=== PATIENT | male | born 1990 | race Caucasian/White ===

== ENCOUNTER 2021-05-29 22:17 | Emergency (ER) | payer MEDICARE, OTHER ==
[~2021-05-29] VITALS: Ht 170.2 cm; Wt 72.6 kg
[2021-05-29] MEDS ORDERED: CRUTCH1 EACH MISC (23:15)
== END 2021-05-29 23:34 | disposition home or self-care (01) ==
LOC: ED 22:17
DX: S93.401A Sprain of unspecified ligament of right ankle, initial encounter (principal); W22.8XXA Striking against or struck by other objects, initial encounter; F17.200 Nicotine dependence, unspecified, uncomplicated
CPT/HCPCS: 73610; 99283-25; A9270

== ENCOUNTER 2021-06-03 16:54 | Emergency (ER) | payer MEDICARE, OTHER ==
[~2021-06-03] VITALS: Ht 170.2 cm; Wt 72.6 kg
[~2021-06-03 16:54] MED LIST: CRUTCH1 EACH MISC
--- OUTSIDE RECORDS SUMMARY | 2021-06-03 17:02 | XMS ---
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 Alexa has no Care Guidelines for this patient. Ramy VISIT COUNT (12 MO.) 2 [facility] [place] [facility] TOTAL 2 NOTE: Visits indicate total known visits. ED/C VISIT TRACKING (12 MO.) 06/03/2021 16:54 [facility] [place] TYPE: Emergency COMPLAINT: - MEDICATION REFILL 05/29/2021 22:[address] [facility] [place] TYPE: Emergency COMPLAINT: - RT FOOT INJURY DIAGNOSES: - Striking against or struck by other objects, initial encounter - Sprain of unspecified ligament of right ankle, initial encounter - Nicotine dependence, unspecified, uncomplicated INPATIENT VISIT TRACKING (12 MO.) No inpatient visits to display in this time frame [email or web address]
== END 2021-06-03 19:25 | disposition home or self-care (01) ==
LOC: ED 16:54
DX: D70.4 Cyclic neutropenia (principal); Z20.822 Contact with and (suspected) exposure to COVID-19; F17.200 Nicotine dependence, unspecified, uncomplicated
CPT/HCPCS: 80053; 85007; 85025; 99283

== ENCOUNTER 2021-08-16 10:28 | Day surgery (SDC) | payer MEDICARE, OTHER ==
[~2021-08-16] VITALS: Ht 170.2 cm; Wt 71.1 kg
[~2021-08-16 10:28] MED LIST changes: +NEUPOGEN300 MCG/1 INJ; +ZYRTEC10 MG PO
--- NOTE | 2021-08-16 13:25 | NUR ---
08/16/21 1325 KrystalMaggi 1312 PT ARRIVED TO PACU ON 6L VIA OXYMASK WITH ORAL AIRWAY IN PLACE. VSS. PT NONAROUSABLE AND RN DOING JAW THRUST. 1314 PROGRESSIVE CARE NURSE AT BED AND DOING JAW THRUST WITH THIS RN.
--- NOTE | 2021-08-21 16:16 | PATH ---
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 Peripheral blood - Marked neutropenia. - Marked thrombocytopenia. B. Bone marrow aspirate, clot section and core biopsies: - Slightly hypocellular bone marrow for age with myeloid hypoplasia and erythroid hyperplasia. - Negative for increase in blasts. - Negative for definite morphologic features of myelodysplastic syndrome (MDS). - Negative for increase in plasma cells or infiltrative bone marrow processes. - Please see Diagnostic Comment. DIAGNOSTIC COMMENT: By morphology, the bone marrow is slightly hypocellular with erythroid precursors and myeloid hypoplasia noted. The megakaryocytes are slightly decreased in number. No definite dyshematopoiesis is identified, and no increase in blasts is present. Patient's history of Shwachman-Lady syndrome is noted. Overall changes are not diagnostic for MDS. Correlation with pending cytogenetic study and FISH panel for MDS will be helpful for further confirmation Results will be reported in an addendum. NA:caw:C2NR PERIPHERAL BLOOD: HEMOGRAM ([facility], 08/16/2021): WBC 1.7 K/uL, RBC 4.2 M/uL, HGB 13.9 g/dL, HCT 41.5%, MCV 98.8 fL, MCH 33.2 pg, MCHC 33.6 g/dL, RDW 15.3%, PLT 50 K/uL. Absolute neutrophils count 0.27 K/uL DIFFERENTIAL COUNT (manual): 16% neutrophils, 67% lymphocytes, 14% monocytes, 1% eosinophils and 2% bands. PATIENT NAME: CHRISTO METZGER PATHOLOGY DATE OF : 88 REPORT #: [id number] PHYSICIAN: JUSTEN PATHOLOGY PCP: NO PRIMARY CARE PHYSICIAN REPORT IS CONFIDENTIAL AND NOT TO BE RELEASED WITHOUT AUTHORIZATION [facility] [address] [place], [place] [address] Signed Review of peripheral and CBC data demonstrates that the RBCs are normal in number and are normocytic and normochromic with no anemia present. The WBCs are decreased in number with absolute neutropenia present. Rare neutrophils are encountered, showing unremarkable morphology. Relative lymphocytosis is present, and the lymphocytes show unremarkable morphology. The platelets are markedly decreased in number (50,000) with unremarkable morphology. BONE MARROW: BONE MARROW ASPIRATE SMEARS: The bone marrow aspirate smears are hypocellular with few bone marrow particles present. Scattered hematopoietic elements are seen, showing progressive ordinary maturation. No increase in blasts is identified. The myeloid precursors appear to be markedly decreased. Relative erythroid hyperplasia is present with progressive maturation and no dyshematopoiesis identified. Rare megakaryocytes are encountered. BONE MARROW DIFFERENTIAL: 1% blasts, 2% promyelocytes, 2.5% myelocytes, 14.5% segmented neutrophils, 10% lymphocytes, 2.5% monocytes, 1.5% eosinophils, 67% erythroid precursors. M: E ratio 0.5. BONE MARROW CORE BIOPSY AND CLOT SECTION: The bone marrow core biopsy demonstrates slightly hypocellular bone marrow for age with average cellularity of 45%. Erythroid hyperplasia is present. Myeloid hypoplasia is noted. There are no lymphoid aggregates, granulomas or metastatic tumor cells present. The megakaryocytes are scattered and appear slightly decreased in number with occasional micromegakaryocytes seen. The clot section shows few clusters with hematopoietic elements with similar findings. SPECIAL STAINS (with appropriate reactive controls): - Iron (aspirate smear): Storage iron markedly decreased, negative for ring sideroblasts. - Iron (clot section, block B1): Absent. - Reticulin stain (block A1): No increase in bone marrow reticulin fibrosis. IMMUNOHISTOCHEMICAL STAINS (block A1, with appropriate reactive controls): - CD34: Highlights scattered positive cells; negative for increased number of blasts. - CD117: Highlights scattered positive cells; negative for increased number of blasts. - MPO: Highlights myeloid precursors, relatively decreased. - CD33: Highlights myeloid precursors, relatively decreased - CD71: Highlights erythroid precursors and confirms erythroid hyperplasia. PATIENT NAME: CHRISTO METZGER PATHOLOGY DATE OF : [birth year] REPORT #: [id number] PHYSICIAN: JUSTEN PATHOLOGY PCP: NO PRIMARY CARE PHYSICIAN REPORT IS CONFIDENTIAL AND NOT TO BE RELEASED WITHOUT AUTHORIZATION [address] [address] Signed - E-cadherin: Highlights erythroid precursors and confirms erythroid hyperplasia. - Factor VIII: Highlights megakaryocytes, slightly decreased. IMMUNOHISTOCHEMICAL STAINS (block B1, with appropriate reactive controls): - CD34: Highlights scattered positive cells; negative for increased numbers of blasts. NA:caw FLOW CYTOMETRY: Bone marrow aspirate, flow cytometry: - No increase in blasts (0.3% myeloblasts). - Myeloid with slightly variable marking. - Monocytes with slightly variable marking. - T-cell subset with variable phenotype detected. - No atypical B-cell population detected. - See Comment. COMMENT: Myeloid with some decreased CD10. Monocytes have increased CD15. A T-cell subset is detected (12% of lymphocytes, 2% of total events) co-expressing CD3 and CD56. Decreased CD4:CD8 ratio is noted. Correlation with clinical, morphologic, and genetic findings is recommended for full interpretation and to assess for disease processes not fully examined by flow cytometry analysis, including myelodysplastic syndrome and myeloproliferative neoplasm. FLOW CYTOMETRY ANALYSIS: FLOW DIFFERENTIAL (% Total CD45 vs. SSC gating): Myeloid 66%; Lymphoid 23%; Monocyte 5%; Dim CD45/Blast: 0.3%. Cell Count: 8.0 x 10*3/uL. POPULATION ANALYSIS: BLASTS: Analysis of the dim CD45 gate demonstrates 0.3% myeloblasts by CD34/CD117. LYMPHOID CELLS: The lymphocyte gate comprises 23% of total events and includes 86% T-cells with a CD4:CD8 ratio of 0.7:1. A T-cell subset is detected (12% of lymphocytes, 2% of total events) co-expressing CD3 and CD56. 3% of lymphocytes are polyclonal B-cells with a kappa:lambda ratio of 1.4:1. The remainders are NK-cells. MYELOID CELLS: The myeloid population comprises 66% of the total events. Some decreased expression of CD10 is observed. MONOCYTES: The monocyte population comprises 5% of the total events. Monocytes are not increased. Increased expression of CD15 is observed. PLASMA CELLS: 0.5% plasma cells are detected in the screening gate neg-dimCD45/CD38. Plasma cells are CD45 dim and positive for CD19. PATIENT NAME: CHRSITO METZGER PATHOLOGY DATE OF : [birth year] REPORT #: [id number] PHYSICIAN: JUSTEN PATHOLOGY PCP: NO PRIMARY CARE PHYSICIAN REPORT IS CONFIDENTIAL AND NOT TO BE RELEASED WITHOUT AUTHORIZATION [facility] [address] [place], [place] [address] Signed MAST CELLS: 0.6% of total events are mast cells. ANTIBODIES USED: KAPPA, LAMBDA, CD20, CD10, CD19, CD23, CD38, FMC7, CD16, CD56, CD8, CD5, CD2, CD4, CD7, CD3, CD14, CD33, CD13, HLADR, CD34, CD117, CD15, CD45. TOTAL ANTIBODIES USED: 24. JNB CYTOGENETICS: Pending, to be reported by addendum. FISH ANALYSIS: Pending, to be reported by addendum. GROSS DESCRIPTION: Two specimens are received in two containers, labeled "LH." A. The specimen, labeled "LH, core," is received in formalin and consists of one cylindrical bone core fragment measuring 0.2 cm in diameter and 2.2 cm in length. The specimen is entirely submitted in cassette (A1) following decalcification in Immunocal. Cold ischemic time: Cannot be determined because of lack of information. Approximate time in formalin: 5 hours. B. The specimen, labeled "LH, clot," is received in formalin and consists of thickened clot material measuring 2.2 x 2.0 x 0.4 cm in aggregate. The specimen is filtered and entirely submitted in cassette (B1). Bone marrow inventory also includes: Four peripheral smears, one EDTA tube bone marrow, two heparin tubes. AT (under the direct supervision of a pathologist) The Gross Description was prepared using a voice recognition system. The report was reviewed for accuracy; however, sound-alike word errors, addition and/or deletions may occur. If there is any question about this report, please contact Client Services. ADDITIONAL NOTES: Immunohistochemical and/or in situ hybridization studies were performed on this case with the appropriate positive controls that react as expected. This test was developed and its performance characteristics determined by [facility] It has not been cleared or approved by the U.S. Food and Drug Administration. The FDA has determined that such clearance or approval is not PATIENT NAME: CHRISTO METZGER PATHOLOGY DATE OF : [birth year] REPORT #: [id number] PHYSICIAN: JUSTEN BHATT PCP: NO PRIMARY CARE PHYSICIAN REPORT IS CONFIDENTIAL AND NOT TO BE RELEASED WITHOUT AUTHORIZATION [facility] [address] [place], [place] [address] Signed necessary. This test is used for clinical purposes. It should not be regarded as investigational or for research. [facility] is certified under the Clinical Laboratory Improvement Amendments of 1988 (CLIA) as qualified to perform high complexity clinical laboratory testing. This assay has not been validated for specimens that have been decalcified. In this case, certain antibodies were performed by both immunohistochemistry and flow cytometry analysis because flow cytometry analysis did not fully explain all the light microscopic findings. Immunohistochemistry aided in the analysis. Both methods are deemed medically necessary in this case. This test was developed and its performance characteristics determined by [facility] It has not been cleared or approved by the US Food and Drug Administration. The FDA does not require this test to go through premarket FDA review. This test is used for clinical purposes. It should not be regarded as investigational or for research. This laboratory is certified under the Clinical Laboratory Improvement Amendments (CLIA) as qualified to perform high complexity clinical laboratory testing. PERFORMING LABORATORY: The technical component was performed by [facility]), [address] [address] (Science Technicians: Jeffy Pineda D.O.; CLIA#: [id number]). Professional interpretation was performed by [facility] ([facility] [address] (CLIA#: [id number]). A portion of the technical component was performed by [facility]), [address] [place] [address] (Science Technicians: Dipika Lozano MD; CLIA# [id number]). A portion of the technical component was performed by [facility]), [address] [place] [address] (Science Technicians: Jeffy Pineda D.O.; CLIA#: [id number]). Professional interpretation was performed by [facility] [address] (CLIA#: [id number]). IMAGES: A: [id number] A: [id number] SPECIMEN SOURCE: A. 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 This study revealed a gain of chromosome 7 and 7q (3R3G, 22%, normal <3.8%, and 3R2G, 12%, normal <5.1%) and a 20q12 deletion (1R2G, 17.5%, normal <10.5%). This finding represents an ABNORMAL result. All other probes in the MDS FISH panel showed normal results. There is no evidence of deletion 5q, 7q or monosomy 5 or 7, trisomy 8, or KMT2A rearrangement. Deletion of 20q is a recurrent finding in myeloid malignancies such as MDS and AML and myeloproliferative disorders. In MDS, 20q deletion alone is associated with a good prognosis, as defined by the International Prognostic Scoring System. This analysis is limited to abnormalities detectable by the specific probes includes in the study. FISH should be interpreted within the context of a full cytogenetic analysis and hematologic evaluation. ISCN: Probe Set Detail: EGR1/O6H911: nuc eliseo 5p15.31(R2J577w0), 5q31(EGR1x2)[200] Z8E414/CEP7: nuc eliseo 7q31(L4W119r0),7q11.2q11.21(CEP7x3)[44/200]/ 7q31(J1Y552c0),7q11.2q11.21(CEP7x2)[24/200] CEP8: nuc eliseo 8q11.1q11.21(CEP8x2)[200] P20R617: nuc eliseo 20q12(A54W187k8)[35/200] KMT2A (MLL): nuc eliseo 11q23(5'KMT2A,3'KMT2A)x2(5'KMT2A con 3'CMH8Cd5)[200] References: An Bishop (2013) Hematology Am Soc Hematol Educ Program 2013:504-10. PMID [id number] Neena Urbano and Kandice Rodriguez (2011) Hematology 16(3):131-8. PMID: 27362372 FISH Analysis Summary: Nuclei Scored: 200 PATIENT NAME: CHRISTO METZGER PATHOLOGY DATE OF : [birth year] REPORT #: [id number] PHYSICIAN: JUSTEN PATHOLOGY PCP: NO PRIMARY CARE PHYSICIAN REPORT IS CONFIDENTIAL AND NOT TO BE RELEASED WITHOUT AUTHORIZATION [facility] [address] [place], [place] [address] Signed Scoring Method: Manual; CPT Code 01577 Number of Probe units: 4 Multiplex Cells analyzed: Interphase Probe sets: Chrom 8: SOFYA 8, Chrom 20: G70S439, Chrom 5: EGR1, Chrom 5: P6R149, Chrom 7: CEN7, Chrom 7: B1Y4095, Chrom 11: KMT2A (MLL) 3', Chrom 11: KMT2A (MLL) 5 ADDITIONAL NOTES: This test was developed and its performance characteristics determined by [facility] [place]. It has not been cleared or approved by the US Food and Drug Administration. The [employer] DNA probe vendor for this study was [employer] PERFORMING LABORATORY: The technical component of the FISH testing was performed by [facility]), [address] [place] [address] (Science Technicians: Jeffy Pineda D.O.; CLIA#: [id number]). Professional interpretation was performed by [facility] [address] [place] [address] (Science Technicians: Jeffy Pineda D.O.; CLIA#: [id number]). IMAGES: A: 20Q/CEP8 [id number]_[id number] A: D7/CEP7 3R2G_003 A: D7/CEP7 [id number]_002 FINAL DIAGNOSIS OF FISH STUDY PERFORMED BY: Cherry Potter MD, Pathologist Aug 21 2021 2:34PM REASON FOR ADDENDUM: To add results of additional testing. Diagnostician: Jossy Bartlett MD, FACP Pathologist Electronically Signed 08/21/2021 Copies: ~ PATIENT NAME: CHRISTO METZGER PATHOLOGY DATE OF : [birth year] REPORT #: [id number] PHYSICIAN: JUSTEN PATHOLOGY PCP: NO PRIMARY CARE PHYSICIAN REPORT IS CONFIDENTIAL AND NOT TO BE RELEASED WITHOUT AUTHORIZATION
== END 2021-08-16 14:10 | disposition home or self-care (01) ==
LOC: OPS 10:28 → DS 10:28 → OPS 12:00
PROVIDERS: ATTEND Specialist
PROC: 079T3ZX Drainage of Bone Marrow, Percutaneous Approach, Diagnostic (ICD-10-PCS; 2021-08-16)
PROC: 07DR3ZX Extraction of Iliac Bone Marrow, Percutaneous Approach, Diagnostic (ICD-10-PCS; principal; 2021-08-16 12:00)
DX: D70.4 Cyclic neutropenia (principal); D61.01 Constitutional (pure) red blood cell aplasia
CPT/HCPCS: 80053; 83615; 85007; 85025; J2405; J2704

== ENCOUNTER 2021-11-15 20:46 | Emergency (ER) | payer MEDICARE, OTHER ==
[~2021-11-15] VITALS: Ht 170.2 cm; Wt 70.3 kg
--- OUTSIDE RECORDS SUMMARY | 2021-11-15 20:52 | XMS ---
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 Alexa has no Care Guidelines for this patient. Ramy VISIT COUNT (12 MO.) 3 [facility] TOTAL 3 NOTE: Visits indicate total known visits. ED/UCC VISIT TRACKING (12 MO.) 11/15/2021 20:46 [facility] TYPE: Emergency COMPLAINT: - ABD PAIN, NAUSEA 06/03/2021 16:54 [facility] TYPE: Emergency COMPLAINT: - MEDICATION REFILL DIAGNOSES: - Nicotine dependence, unspecified, uncomplicated - Cyclic neutropenia 05/29/2021 22:18 [facility] TYPE: Emergency COMPLAINT: - RT FOOT INJURY DIAGNOSES: - Striking against or struck by other objects, initial encounter - Sprain of unspecified ligament of right ankle, initial encounter - Nicotine dependence, unspecified, uncomplicated INPATIENT VISIT TRACKING (12 MO.) No inpatient visits to display in this time frame [email or web address]
[2021-11-15] MEDS ORDERED: ZOFRAN4 MG PO (23:17)
[2021-11-15] MEDS ORDERED: HYDROCODON-ACE1 EA10 PO (23:17)
== END 2021-11-15 23:30 | disposition home or self-care (01) ==
LOC: ED 20:46
DX: N20.2 Calculus of kidney with calculus of ureter (principal); F17.200 Nicotine dependence, unspecified, uncomplicated; Z88.8 Allergy status to other drugs, medicaments and biological substances; Z79.899 Other long term (current) drug therapy
CPT/HCPCS: 74176; 80053; 81001; 85025; 96374; 96375; 99284-25; A9270; J1885; J2405

== ENCOUNTER 2022-08-30 10:35 | Day surgery (SDC) | payer MEDICARE, OTHER ==
[~2022-08-30] VITALS: Ht 170.2 cm; Wt 71.8 kg
[~2022-08-30 10:35] MED LIST changes: +HYDROCODON-ACE1 EA10 PO; +ZARXIO300 MCG/0. IJ; +ZOFRAN4 MG PO; +ZYRTEC10 M3 PO
--- NOTE | 2022-08-30 12:11 | NUR ---
08/30/22 1211 Sujatha Avalos 1206- PT ARRIVES TO PACU NONAROUSABLE TO STIMULI. RESP EVEN AND UNLABORED. OXYGEN SAT HIGH 90'S TO 100% ON 2L VIA CO2 NC. 1210- PT AROUSING ON HIS OWN. PT UPDATED THAT HIS PROCEDURE IS OVER AND HE IS WAKING UP IN THE RECOVERY ROOM.
--- NOTE | 2022-09-03 15:05 | PATH ---
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 - Thrombocytopenia. - Normal hemoglobin with slightly elevated MCV. Bone marrow, aspirate smears, clot section and core biopsy: - Mildly hypercellular bone marrow (70-80%) with mild myeloid hypoplasia, dysmegakaryopoiesis and subtle dyserythropoiesis. - No morphologic or immunophenotypic evidence of high-grade myeloid neoplasia or a lymphoproliferative disease. - Mast cell hyperplasia. - Focal grade 1 of 3 reticulin fibrosis. - Mildly increased stainable iron. - Please see Diagnostic Comment. DIAGNOSTIC COMMENT: Review of included clinical notes reveals a history of Shwachman-Lady syndrome, compound heterozygote for SBDS mutation. Cytogenetic study and FISH for MDS was performed on previous bone marrow specimen ([id number]) and demonstrated a loss of 7p (monosomy 7p) and a gain (trisomy) for 7q, and 20q deletion by FISH analysis. The current bone marrow examination shows mildly hypercellular marrow with mild myeloid hypoplasia, dysmorphic megakaryocytes and subtle dyserythropoiesis. Evolving myelodysplasia cannot be entirely excluded. There is no evidence of transformation to high-grade myeloid neoplasm. Next Generation sequencing for myeloid neoplasms has been ordered and the results will be reported in an addendum. GP:kerry:C2NR PERIPHERAL BLOOD: HEMOGRAM ([facility], 08/30/2022): WBC 2.3 K/uL, RBC 4.26 M/uL, HGB 14.3 g/dL, HCT 42.3%, MCV 99.4 fL, MCH 33.5 pg, MCHC 33.8 g/dL, RDW 15.2%, PLT 43 K/uL. PATIENT NAME: CHRISTO METZGER PATHOLOGY DATE OF : 88 REPORT #: [id number] PHYSICIAN: JUSTEN BHATT PCP: NO PRIMARY CARE PHYSICIAN REPORT IS CONFIDENTIAL AND NOT TO BE RELEASED WITHOUT AUTHORIZATION [facility] [address] [place], [place] [address] Signed DIFFERENTIAL (100 cells): Neutrophils 13%, lymphocytes 74%, monocytes 11%, eosinophils 1%, basophils 1%. The blood smear is consistent with the CBC. WBC count is markedly decreased with relative predominance of small mature appearing lymphocytes with scant to moderate amount of cytoplasm and condensed chromatin pattern. Some large granular lymphocytes are noted. The absolute neutrophil count is markedly decreased. Neutrophils demonstrate normal cytoplasmic granularity and nuclear features. No blasts or otherwise immature cells are detected. Unremarkable monocytes, eosinophils and basophils are seen. Platelets are decreased in number. Hemoglobin is normal with slightly elevated MCV; red blood cells are predominantly round, normochromic and slightly macrocytic. The red blood cells exhibit mild anisocytosis with occasional ovalocytes and few spherocytes. Schistocytes are not significantly increased. BONE MARROW: DIFFERENTIAL (400 cells): Blasts 1%, promyelocytes 2%, myelocytes 9%, metamyelocytes 9%, bands 12%, neutrophils 11%, normoblasts 37%, lymphocytes 13%, plasma cells 2%, monocytes 2%, eosinophils 1%, basophils 0.5%, mast cells 0.5%. ASPIRATE SMEARS: The aspirate smears are adequately cellular and contain trilineage hematopoietic elements at different stages of maturation. M:E ratio is mildly decreased. Erythroid precursors exhibit mild megaloblastoid changes with [id number]-xc-oejimfnuaab dyssynchrony. Rare binucleated normoblasts are seen. Myelopoiesis appears diminished but exhibits full spectrum of maturation. Bone marrow spicules contain easily identifiable mast cells. No significant lymphocytosis or plasmacytosis is detected. Megakaryocytes are variably sized including some small mononuclear and hypolobated forms. CORE BIOPSY: The biopsy is adequate for evaluation. Histologic sections demonstrate mildly hypercellular marrow for the patient's age (overall estimated cellularity is approximately 70-80%) with trilineage hematopoietic elements at different stages of maturation. Erythroid colonies, maturing granulocytes and variably sized megakaryocytes are seen. Some small mononuclear and hypolobated megakaryocytes are noted. Blasts are not increased. No abnormal lymphoid or plasma cell infiltrates are detected. No definitive fibrosis, granulomas or non-hematopoietic neoplasms are seen. PATIENT NAME: CHRISTO METZGER PATHOLOGY DATE OF : [birth year] REPORT #: [id number] PHYSICIAN: JUSTEN PATHOLOGY PCP: NO PRIMARY CARE PHYSICIAN REPORT IS CONFIDENTIAL AND NOT TO BE RELEASED WITHOUT AUTHORIZATION [address] [address] Signed CLOT SECTION: The clot section contains cellular bone marrow elements with similar morphologic alterations. SPECIAL STAINS: - Iron (performed on aspirate smear and clot section): Mildly increased stainable iron; no ring sideroblasts detected. - Reticulin (performed on bone marrow core biopsy): Focal grade 1 of 3 reticulin fibrosis. IMMUNOHISTOCHEMICAL STAINS (performed on bone marrow core biopsy): - CD34: Positive in endothelial cells and scattered immature cells (2-3%). - CD117: Positive in mast cells; highlights increased number of interstitial mast cells without aggregating and weakly positive in some immature cells. - CD71: Positive in erythroid precursors. - Factor VIII: Positive in megakaryocytes; highlights small mononuclear and hypolobated forms. - Myeloperoxidase: Positive in myeloid precursors. GP:[facility] FLOW CYTOMETRY: Bone marrow, flow cytometry: - No increase in blasts. - No monoclonal B-cell or aberrant T-cell populations detected. - Monocytes and granulocytes with mild immunophenotypic variation. - Please see Comment. COMMENT: The flow cytometry study demonstrates no immunophenotypic evidence of high-grade myeloid neoplasia or a lymphoproliferative neoplasm. Granulocytes and monocytes exhibit mild immunophenotypic variations. Those changes can be observed in myeloid stem cell disorders and certain reactive conditions. Correlation with clinical and morphologic findings is required for complete interpretation of the flow cytometry results and to evaluate for disorders not completely characterized by flow cytometric analysis including myelodysplastic syndromes, myeloproliferative neoplasms, and others. GP:[facility] FLOW CYTOMETRY ANALYSIS: FLOW DIFFERENTIAL (% Total CD45 vs. SSC gating): Myeloid 83%; Lymphoid 9%; Monocyte 1%; Dim CD45/Blast: 1.4%. Cell Count: 6.9 x 10*3/uL. POPULATION ANALYSIS: BLASTS: 1Analysis of the dim CD45 gate demonstrates 1.4% myeloblasts by PATIENT NAME: CHRISTO METZGER PATHOLOGY DATE OF : [birth year] REPORT #: [id number] PHYSICIAN: JUSTEN PATHOLOGY PCP: NO PRIMARY CARE PHYSICIAN REPORT IS CONFIDENTIAL AND NOT TO BE RELEASED WITHOUT AUTHORIZATION [facility] [address] [place], [place] [address] Signed CD34/CD117. LYMPHOID CELLS: The lymphocyte gate comprises 9% of total events and includes 85% T-cells with a CD4:CD8 ratio of 0.7:1 and normal huynh T-cell antigen expression. 4% of lymphocytes are polyclonal B-cells with a kappa:lambda ratio of 1.2:1. The remainders are NK-cells. MYELOID CELLS: The myeloid population comprises 83% of the total events. Decreased SSC and decreased CD10 expression are observed. MONOCYTES: The monocyte population comprises 1% of the total events. Monocytes are not increased. Some decreased CD14 expression is observed. PLASMA CELLS: 0.2% plasma cells are detected in the screening gate neg-dimCD45/CD38. Plasma cells are CD45 dim and positive for CD19. MAST CELLS: 0.2% of total events are mast cells (n=42). ANTIBODIES USED: KAPPA, LAMBDA, CD20, CD10, CD19, CD23, CD38, CD16, CD56, CD8, CD5, CD2, CD4, CD7, CD3, CD14, CD33, CD13, HLADR, CD34, CD117, CD15, CD45: TOTAL ANTIBODIES USED: 23. JNB FINAL DIAGNOSIS PERFORMED BY: Omero Woodson MD. MPH, Pathologist Aug 31 2022 12:21PM MOLECULAR / PCR: Pending, to be reported by addendum. GROSS DESCRIPTION: Two specimens are received in two containers, labeled "LH." A. The specimen, labeled "LH, core," is received in formalin and consists of one core of brown-campos bone (0.7 cm in length by 0.3 cm diameter). The specimen is submitted entirely in cassette A1 following decalcification in Immunocal. B. The specimen, labeled "LH, clot," is received in formalin and consists of a portion of red-brown clot (2.0 x 1.2 x 0.3 cm in aggregate). The specimen is submitted entirely in cassette B1. AC (under the direct supervision of a pathologist) ADDITIONAL NOTES: This test was developed and its performance characteristics determined by [facility]. It has not been cleared or approved by the US Food and Drug Administration. The FDA does not require this test to go through premarket FDA review. This test is used for clinical purposes. It should not be regarded as investigational or for research. This laboratory is certified under the Clinical PATIENT NAME: CHRISTO METZGER PATHOLOGY DATE OF : [birth year] REPORT #: [id number] PHYSICIAN: JUSTEN BHATT PCP: NO PRIMARY CARE PHYSICIAN REPORT IS CONFIDENTIAL AND NOT TO BE RELEASED WITHOUT AUTHORIZATION [address] [address] Signed Laboratory Improvement Amendments (CLIA) as qualified to perform high complexity clinical laboratory testing. Immunohistochemical and/or in situ hybridization studies were performed on this case with the appropriate positive controls that react as expected. This test was developed and its performance characteristics determined by [facility]. It has not been cleared or approved by the U.S. Food and Drug Administration. The FDA has determined that such clearance or approval is not necessary. This test is used for clinical purposes. It should not be regarded as investigational or for research. [facility] is certified under the Clinical Laboratory Improvement Amendments of 1988 (CLIA) as qualified to perform high complexity clinical laboratory testing. This assay has not been validated for specimens that have been decalcified. In this case, certain antibodies were performed by both immunohistochemistry and flow cytometry analysis because flow cytometry analysis did not fully explain all the light microscopic findings. Immunohistochemistry aided in the analysis. Both methods are deemed medically necessary in this case. PERFORMING LABORATORY: The technical preparation and professional interpretation were performed by [facility], [facility] [place] [address] (CLIA#: [id number]). The technical preparation and professional interpretation were performed by [facility], [address] [place], [place] [address] [address] (CLIA#: [id number]). IMAGES: [id number]: [id number]: [id number] Diagnostician: Omero Woodson MD. MPH Pathologist Electronically Signed 09/03/2022 Copies: ~ PATIENT NAME: CHRISTO METZGER PATHOLOGY DATE OF : [birth year] REPORT #: [id number] PHYSICIAN: [email or web address] PCP: NO PRIMARY CARE PHYSICIAN REPORT IS CONFIDENTIAL AND NOT TO BE RELEASED WITHOUT AUTHORIZATION
== END 2022-08-30 13:00 | disposition home or self-care (01) ==
LOC: DS 10:35 → OPS 10:35 → DS 12:00 → OPS 12:00
PROVIDERS: ATTEND Specialist
PROC: 079T3ZX Drainage of Bone Marrow, Percutaneous Approach, Diagnostic (ICD-10-PCS; 2022-08-30)
PROC: 07DR3ZX Extraction of Iliac Bone Marrow, Percutaneous Approach, Diagnostic (ICD-10-PCS; principal; 2022-08-30 12:00)
DX: D70.4 Cyclic neutropenia (principal); D75.81 Myelofibrosis
CPT/HCPCS: 36415; 85025; 85060; A9270; J2704; J7121

== ENCOUNTER 2022-12-18 16:41 | Emergency (ER) | payer MEDICARE, OTHER ==
[~2022-12-18] VITALS: Ht 170.2 cm; Wt 72.0 kg
[2022-12-18] MEDS ORDERED: HYDROCODON-ACE1 EA10 PO (20:23)
== END 2022-12-18 20:58 | disposition home or self-care (01) ==
LOC: ED 16:41
DX: S30.1XXA Contusion of abdominal wall, initial encounter (principal); S40.011A Contusion of right shoulder, initial encounter; S40.021A Contusion of right upper arm, initial encounter; S70.01XA Contusion of right hip, initial encounter; S20.211A Contusion of right front wall of thorax, initial encounter; D69.6 Thrombocytopenia, unspecified; F17.200 Nicotine dependence, unspecified, uncomplicated; Z88.8 Allergy status to other drugs, medicaments and biological substances; Z91.048 Other nonmedicinal substance allergy status; W01.0XXA Fall on same level from slipping, tripping and stumbling without subsequent striking against object, initial encounter
CPT/HCPCS: 36415; 71101; 73030; 73080; 73502; 74177; 80053; 81001; 85025; 96374; 96375; 99284-25; A9270; J1170; J2405

== ENCOUNTER 2023-01-31 21:55 | Inpatient (IN) | payer MEDICARE, OTHER ==
[~2023-01-31] VITALS: Ht 170.2 cm; Wt 67.8 kg
[~2023-01-31 21:55] MED LIST changes: -ZYRTEC10 M3 PO
[2023-02-01] MEDS ORDERED: CIPROFLOXACIN500 MG PO (07:31)
[2023-02-01] MEDS ORDERED: ONDANSETRON ODT8 MG PO (07:31)
[2023-02-01] MEDS ORDERED: AMOX TR-K CLV1 EAC1 PO (07:31)
[2023-02-01] MEDS ORDERED: HYDROCODON-ACE1 EA10 PO (08:09)
[2023-02-01] MEDS ORDERED: VIDAZA100 MG SUB-Q (10:50)
== END 2023-02-04 13:45 | disposition home or self-care (01) | DRG 867 ==
LOC: ED 21:55 → MS 21:56
PROVIDERS: ADMIT Family Medicine; ATTEND Internal Medicine
PROC: 3E03329 Introduction of Other Anti-infective into Peripheral Vein, Percutaneous Approach (ICD-10-PCS; principal; 2023-02-01)
PROC: 30233R1 Transfusion of Nonautologous Platelets into Peripheral Vein, Percutaneous Approach (ICD-10-PCS; 2023-02-01)
DX: T80.29XA Infection following other infusion, transfusion and therapeutic injection, initial encounter (principal); A41.9 Sepsis, unspecified organism; L03.311 Cellulitis of abdominal wall; D61.818 Other pancytopenia; Z20.822 Contact with and (suspected) exposure to COVID-19; R50.81 Fever presenting with conditions classified elsewhere; D70.4 Cyclic neutropenia; D46.9 Myelodysplastic syndrome, unspecified; R74.8 Abnormal levels of other serum enzymes; F17.210 Nicotine dependence, cigarettes, uncomplicated; Z90.89 Acquired absence of other organs; Z88.8 Allergy status to other drugs, medicaments and biological substances; Z91.048 Other nonmedicinal substance allergy status; Z79.899 Other long term (current) drug therapy; Y84.8 Other medical procedures as the cause of abnormal reaction of the patient, or of later complication, without mention of misadventure at the time of the procedure
CPT/HCPCS: 36415; 36430; 71045; 74177; 80053; 80202; 81001; 83605; 83735; 84100; 85025; 85610; 85730; 86850; 86900; 86901; 86922; 87040; 87502; 94762; 96375; 99285-25; A9270; C9803; J0692; J2405; J3370; J7060; J7121; P9035; Q9967; U0003

== ENCOUNTER 2023-04-26 13:00 | Inpatient (IN) | payer MEDICARE, OTHER ==
[~2023-04-26] VITALS: Ht 170.2 cm; Wt 67.4 kg
[~2023-04-26 13:00] MED LIST changes: +AMOX TR-K CLV1 EAC1 PO; +CIPROFLOXACIN500 MG PO; +ONDANSETRON ODT8 MG PO; +VIDAZA100 MG SUB-Q
--- OUTSIDE RECORDS SUMMARY | 2023-04-26 13:03 | XMS ---
PreManage Notification: CHRISTO METZGER Security Quarter Seamer Events No recent Security Events currently on file CRITERIA MET - PDMP CARE PROVIDERS -, [place]- Dentist: Marketing Assistant Manager [facility] PHONE: [phone] Alexa has no Care Guidelines for this patient. E.DGeraldine VISIT COUNT (12 MO.) 3 [facility] TOTAL 3 NOTE: Visits indicate total known visits. ED/UCC VISIT TRACKING (12 MO.) 04/26/2023 13:01 [facility] [place] TYPE: Emergency COMPLAINT: - FEVER 01/31/2023 21:55 [facility] [place] TYPE: Emergency COMPLAINT: - FEVER 12/18/2022 16:41 [facility] [place] TYPE: Emergency COMPLAINT: - FALL DIAGNOSES: - Allergy status to other drugs, medicaments and biological substances - Contusion of abdominal wall, initial encounter - Contusion of right front wall of thorax, initial encounter - Contusion of right hip, initial encounter - Contusion of right shoulder, initial encounter - Contusion of right upper arm, initial encounter - Fall on same level from slipping, tripping and stumbling without subsequent striking against object, initial encounter - Nicotine dependence, unspecified, uncomplicated - Other nonmedicinal substance allergy status - Pleurodynia - Thrombocytopenia, unspecified INPATIENT VISIT TRACKING (12 MO.) 04/10/2023 13:50 [facility] TYPE: Bone Marrow Aspiration and Biopsy DIAGNOSES: - Cyclic neutropenia - Cyclic neutropenia - Myelodysplastic syndrome, unspecified 02/01/2023 08:[address] [facility] [place] TYPE: Medical Surgical COMPLAINT: - NEUTOPENIC FEVER DIAGNOSES: - Abnormal levels of other serum enzymes - Abnormal levels of other serum enzymes - Acquired absence of other organs - Acquired absence of other organs - Allergy status to other drugs, medicaments and biological substances - Allergy status to other drugs, medicaments and biological substances - Cellulitis of abdominal wall - Cellulitis of abdominal wall - Contact with and (suspected) exposure to COVID-19 - Contact with and (suspected) exposure to COVID-19 - Cyclic neutropenia - Cyclic neutropenia - Fever presenting with conditions classified elsewhere - Fever presenting with conditions classified elsewhere - Infection following other infusion, transfusion and therapeutic injection, initial encounter - Infection following other infusion, transfusion and therapeutic injection, initial encounter - Myelodysplastic syndrome, unspecified - Myelodysplastic syndrome, unspecified - Neutropenia, unspecified - Nicotine dependence, cigarettes, uncomplicated - Nicotine dependence, cigarettes, uncomplicated - Other intermediate (current) drug therapy - Other intermediate (current) drug therapy - Other medical procedures as the cause of abnormal reaction of the patient, or of later complication, without mention of misadventure at the time of the procedure - Other medical procedures as the cause of abnormal reaction of the patient, or of later complication, without mention of misadventure at the time of the procedure - Other nonmedicinal substance allergy status - Other nonmedicinal substance allergy status - Other pancytopenia - Other pancytopenia - Sepsis, unspecified organism - Sepsis, unspecified organism [email or web address]
[2023-04-26] MEDS ORDERED: ACYCLOVIR400 MG PO (14:02)
[2023-04-26] MEDS ORDERED: NOXAFIL100 MG PO (14:02)
[2023-04-26] MEDS ORDERED: OXYCODONE HCL5 MG PO (14:03)
[2023-04-26 15:44] VITALS: BP 114/72
[2023-04-26] MEDS ORDERED: EPCLUSA 400 MG1 EACH PO (16:01)
[2023-04-26] MEDS ORDERED: ONDANSETRON HCL8 MG PO (16:02)
[2023-04-26] MEDS ORDERED: POTASSIUM CHLO20 ME1 PO (16:03)
[2023-04-26] MEDS ORDERED: OXYCODONE HCL10 MG PO (16:04)
[2023-04-26 17:45] VITALS: BP 118/59
[2023-04-26 22:00] VITALS: BP 99/52
[2023-04-26 22:15] VITALS: BP 103/61
[2023-04-26 23:00] VITALS: BP 97/54
[2023-04-26 23:30] VITALS: BP 95/49
[2023-04-27] VITALS (10 sets, daily range): BP systolic 102–130; BP diastolic 50–79
--- NOTE | 2023-04-27 06:34 | EKG ---
[facility] [facility] [address] [facility] [place], [place] [address] Signed Normal sinus rhythm Normal ECG No previous ECGs available Confirmed by ADRIANA MAIN MD ([id number]) on 04/27/2023 6:33:54 AM Electronically Signed By: ADRIANA MAIN 04/27/23 0634 PATIENT NAME: CHRISTO METZGER Electrocardiogram DATE OF : 88 PHYSICIAN: ADRIANA MAIN REPORT #: [id number] REPORT IS CONFIDENTIAL AND NOT TO BE RELEASED WITHOUT AUTHORIZATION
[2023-04-28] VITALS: BP 103/63
[2023-04-28 08:01] VITALS: BP 136/87
[2023-04-28 12:33] VITALS: BP 144/73
== END 2023-04-28 12:48 | disposition home or self-care (01) | DRG 809 ==
LOC: ED 13:00 → CCU 14:49
PROVIDERS: ADMIT Family Medicine; ATTEND Family Medicine
PROC: 30233R1 Transfusion of Nonautologous Platelets into Peripheral Vein, Percutaneous Approach (ICD-10-PCS; principal; 2023-04-26)
PROC: 30233N1 Transfusion of Nonautologous Red Blood Cells into Peripheral Vein, Percutaneous Approach (ICD-10-PCS; 2023-04-26)
DX: D70.4 Cyclic neutropenia (principal); D61.810 Antineoplastic chemotherapy induced pancytopenia; C95.00 Acute leukemia of unspecified cell type not having achieved remission; R65.10 Systemic inflammatory response syndrome (SIRS) of non-infectious origin without acute organ dysfunction; D61.818 Other pancytopenia; R50.81 Fever presenting with conditions classified elsewhere; Z20.822 Contact with and (suspected) exposure to COVID-19; D46.9 Myelodysplastic syndrome, unspecified; F17.210 Nicotine dependence, cigarettes, uncomplicated; R74.01 Elevation of levels of liver transaminase levels; E87.6 Hypokalemia; Z92.21 Personal history of antineoplastic chemotherapy; Z88.8 Allergy status to other drugs, medicaments and biological substances; Z79.2 Long term (current) use of antibiotics; Z91.048 Other nonmedicinal substance allergy status; Z79.899 Other long term (current) drug therapy; Z79.891 Long term (current) use of opiate analgesic
CPT/HCPCS: 36415; 36430; 71045; 80053; 81001; 83605; 85025; 85610; 85730; 86850; 86900; 86901; 86922; 87040; 87088; 87502; 93005; 93010; 96374; 97161; 99284-25; A9270; C9803; J0692; J0878; J2405; J7030; P9035; U0002